=== PATIENT | female | born 1965 | race Two or more races ===

== ENCOUNTER 2018-07-30 12:40 | Emergency (ER) | payer OTHER ==
[~2018-07-30] VITALS: Ht 157.5 cm; Wt 89.8 kg
[2018-07-30] MEDS ORDERED: TUSSIONEX PENN115 ML PO (15:55)
== END 2018-07-30 16:26 | disposition home or self-care (01) ==
LOC: ER 12:40
DX: J11.1 Influenza due to unidentified influenza virus with other respiratory manifestations (principal); J40 Bronchitis, not specified as acute or chronic

== ENCOUNTER 2021-02-20 17:39 | Emergency (ER) | payer OTHER ==
[~2021-02-20] VITALS: Ht 157.5 cm; Wt 95.3 kg
[~2021-02-20 17:39] MED LIST: TUSSIONEX PENN115 ML PO
[2021-02-20] MEDS ORDERED: SYNTHROID75 MCG (18:24)
[2021-02-20] MEDS ORDERED: DICLOFENAC SODI75 MG PO (19:05)
== END 2021-02-20 19:41 | disposition home or self-care (01) ==
LOC: ER 17:39
DX: M94.0 Chondrocostal junction syndrome [Tietze] (principal)

== ENCOUNTER 2022-01-26 07:10 | Emergency (ER) | payer OTHER ==
[~2022-01-26] VITALS: Ht 157.5 cm; Wt 98.0 kg
[~2022-01-26 07:10] MED LIST changes: +DICLOFENAC SODI75 MG PO; +SYNTHROID75 MCG
== END 2022-01-26 13:50 | disposition home or self-care (01) ==
LOC: ER 07:10
DX: K57.32 Diverticulitis of large intestine without perforation or abscess without bleeding (principal)

== ENCOUNTER → 2022-11-17 | Emergency (ER) | payer OTHER ==
[~2022-11-17] VITALS: Ht 157.5 cm; Wt 97.5 kg
== END | disposition home or self-care (01) ==
LOC: ER 09:38
DX: M72.2 Plantar fascial fibromatosis (principal)

== ENCOUNTER 2022-11-24 20:49 | Emergency (ER) | payer OTHER ==
[~2022-11-24] VITALS: Ht 157.5 cm; Wt 99.8 kg
[2022-11-24] MEDS ORDERED: VOLTAREN ARTHRI20 GM (20:56)
== END 2022-11-25 01:29 | disposition home or self-care (01) ==
LOC: ER 20:49
DX: R42 Dizziness and giddiness (principal); I10 Essential (primary) hypertension; E11.9 Type 2 diabetes mellitus without complications; E03.9 Hypothyroidism, unspecified